=== PATIENT | female | born 1945 | race Caucasian/White ===

== ENCOUNTER → 2019-10-16 | Outpatient (CLI) | payer MEDICARE ==
[~2019-10-16] MED LIST: ASPI-515 PO; AZAT50TA9 PO; CALC1CAP8 PO; CHOL10003 PO; CHOL200024 PO; CYAN2500 PO; GABA600T7 PO; LACT1CAP40 PO; LEVO125T5 PO; LUTEIN PO; MULT-709 PO; OMEG100023 PO; OMEG1CAP39 PO; PENT100C2 PO; VITA1CAP5 PO; [UNRECOGNIZED DRUG - OTHER] PO; prevagen PEG
== END | disposition home or self-care (01) ==
LOC: STAR 10:34
PROVIDERS: ATTEND Obstetrics & Gynecology Female Pelvic Medicine and Reconstructive Surgery
DX: Z01.818 Encounter for other preprocedural examination (principal); N39.3 Stress incontinence (female) (male); R10.2 Pelvic and perineal pain; N81.10 Cystocele, unspecified; N81.6 Rectocele
CPT/HCPCS: 93005

== ENCOUNTER 2019-10-23 08:28 | Day surgery (SDC) | payer MEDICARE ==
[~2019-10-23] VITALS: Ht 172.7 cm; Wt 75.0 kg
[~2019-10-23 08:28] MED LIST changes: +BUPIVACAINE/PF 0.25% ONE; +EPINEPHRINE 1 MG/ML, 1ML ONE; +GENTAMICIN 80 MG/2 ML ONE; +VANCOMYCIN 500 MG ONE
[2019-10-23] MEDS ORDERED: LACTATED RINGERS 1,000 ML IV SCH (08:41)
[2019-10-23] MEDS ORDERED: CHLORHEXIDINE 15 ML UDC MM STA (08:42)
[2019-10-23] MEDS ORDERED: CHLORHEXIDINE 15 ML UDC ONE (08:44)
[2019-10-23] MEDS ORDERED: LABETALOL 5MG/ML, 20ML IV PRN (11:00)
[2019-10-23] MEDS ORDERED: LORazepam 2 MG/ML, 1ML IVPush PRN (11:00)
[2019-10-23] MEDS ORDERED: METHOCARBAMOL 1,000 MG in DEXTROSE 5% 100 ML IV PRN (11:00)
[2019-10-23] MEDS ORDERED: EPHEDRINE 50 MG/ML, 1ML IVPush PRN (11:00)
[2019-10-23] MEDS ORDERED: FENTANYL PF 100 MCG/2ML IV PRN (11:00)
[2019-10-23] MEDS ORDERED: MIDAZOLAM 1 MG/ML, 2ML IV PRN (11:00)
[2019-10-23] MEDS ORDERED: ACETAMINOPHEN 325 MG TABLET PO PRN (11:00)
[2019-10-23] MEDS ORDERED: ALBUTEROL/IPRATROPIUM 2.5MG/0.5MG, 3 ML NPPB PRN (11:00)
[2019-10-23] MEDS ORDERED: METOCLOPRAMIDE 5 MG/ML, 2ML IVPush PRN (11:00)
[2019-10-23] MEDS ORDERED: DIPHENHYDRAMINE 50 MG/ML, 1ML IVPush PRN (11:00)
[2019-10-23] MEDS ORDERED: HALOPERIDOL 5 MG/ML IV PRN (11:00)
[2019-10-23] MEDS ORDERED: ONDANSETRON 2MG/ML, 2ML IVPush PRN (11:00)
[2019-10-23] MEDS ORDERED: MEPERIDINE/PF 25MG/0.5ML IVPush PRN (11:00)
[2019-10-23] MEDS ORDERED: EPHEDRINE 50 MG/ML, 1ML IM PRN (11:00)
[2019-10-23] MEDS ORDERED: DIAZEPAM 5 MG/ML, 2ML IVPush PRN (11:00)
[2019-10-23] MEDS ORDERED: DEXAMETHASONE 4 MG/ML, 1ML ONE (11:36)
[2019-10-23] MEDS ORDERED: GLYCOPYRROLATE 0.4 MG/2 ML, 2ML ONE (11:36)
[2019-10-23] MEDS ORDERED: PROPOFOL 10 MG/ML, 100ML IV ONE (11:36)
[2019-10-23] MEDS ORDERED: ROCURONIUM 10 MG/ML,10ML ONE (11:36)
[2019-10-23] MEDS ORDERED: ONDANSETRON 2MG/ML, 2ML ONE ×2 (11:36→11:54)
[2019-10-23] MEDS ORDERED: CEFAZOLIN PMX 2GM/50ML IVPB ONE (11:36)
[2019-10-23] MEDS ORDERED: MIDAZOLAM 1 MG/ML, 5ML ONE (11:36)
[2019-10-23] MEDS ORDERED: VANCOMYCIN 500 MG IVPB ONE (11:51)
[2019-10-23] MEDS ORDERED: BUPIVACAINE/PF-EPI 0.25% 1:200K SQ ONE (11:51)
[2019-10-23] MEDS ORDERED: GENTAMICIN 80 MG/2 ML IV ONE (11:51)
[2019-10-23] MEDS ORDERED: ACETAMINOPHEN 650 MG/20.3 ML UDC ONE (13:36)
[2019-10-23] MEDS ORDERED: MEPERIDINE/PF 25MG/ML,1ML ONE (13:36)
== END 2019-10-23 17:00 | disposition home or self-care (01) ==
LOC: OUT 08:28
PROVIDERS: ATTEND Obstetrics & Gynecology Female Pelvic Medicine and Reconstructive Surgery
DX: N81.2 Incomplete uterovaginal prolapse (principal); Z11.59 Encounter for screening for other viral diseases; N39.46 Mixed incontinence; N80.0 Endometriosis of uterus; D25.9 Leiomyoma of uterus, unspecified; D39.11 Neoplasm of uncertain behavior of right ovary; R10.2 Pelvic and perineal pain; E03.9 Hypothyroidism, unspecified; Z79.890 Hormone replacement therapy; Z79.899 Other long term (current) drug therapy; Z88.5 Allergy status to narcotic agent; Z98.890 Other specified postprocedural states
CPT/HCPCS: 36415; 57265; 57282; 57288; 58552; 87635; 88307; 88341; 88342; C1771; J0171; J0690; J1100; J1580; J2175; J2250; J2405; J2704; J3370; J3490; J7120